=== PATIENT | female | born 1950 | race Caucasian/White ===

== ENCOUNTER 2019-06-20 16:03 | Emergency (ER) | payer MEDICARE ==
[2019-06-20 16:39] VITALS: BP 140/62; PULSE 73
--- NOTE | 2019-06-20 16:51 | EDM.PDOC ---
ED HPI GENERAL MEDICAL PROBLEM - General Chief Complaint: Flank Pain Stated Complaint: LOWER RIGHT BACK PAIN Time Seen by Provider: 06/20/19 16:50 Source of Information: Reports: Patient History Limitations: Reports: No Limitations - History of Present Illness INITIAL COMMENTS - FREE TEXT/NARRATIVE: pt is having rt flank pain she has had this on and off for 2 years. She has mainly back pain. This was at the level of a 10 earlier and is a 5 now. She is not vomiting. She has not noted blood in the urine, Onset: Today, Sudden, Other (pt acute pain in the rt flank . Pain is mainly flank pain. He did not have pain in the rt upper abdoman. ) Duration: Hour(s): Location: Reports: Back, Other (pt has acute pain in the rt back area. ) Right Flank Pain Score (Numeric/FACES): 7 - Related Data Allergies Allergy/AdvReac Type Severity Reaction Status Date / Time No Known Allergies Allergy Verified 06/20/19 17:01 Home Meds: Home Meds Aspirin [Adult Low Dose Aspirin EC] 81 mg PO DAILY 02/22/14 [History] Lisinopril 5 mg PO DAILY 02/22/14 [History] Omeprazole [Prilosec] 20 mg PO BID 02/22/14 [History] Potassium Chloride [Klor-Con] 20 meq PO DAILY 02/22/14 [History] Pravastatin Sodium [Pravastatin (Pravachol)] 40 mg PO BEDTIME 02/22/14 [History] hydroCHLOROthiazide [Hydrochlorothiazide] 25 mg PO DAILY 02/22/14 [History] Levothyroxine 112 mcg PO ACBREAKFAST 06/20/19 [History] traZODone 100 mg PO BEDTIME 06/20/19 [History] Past Medical History HEENT History: Reports: Impaired Vision Cardiovascular History: Reports: Hypertension Gastrointestinal History: Reports: None, Colon Polyp, GERD Genitourinary History: Reports: Pyelonephritis, UTI, Recurrent [employer] History: Reports: , Spontaneous Musculoskeletal History: Reports: Arthritis, Fracture, Other (See Below) Other Musculoskeletal History: right broken leg Endocrine/Metabolic History: Reports: Other (See Below) Other Endocrine/Metabolic History: right thyroid nodule Dermatologic History: Reports: None - Infectious Disease History Infectious Disease History: Reports: Chicken Pox, Measles, Mumps - Past Surgical History Cardiovascular Surgical History: Reports: None GI Surgical History: Reports: Appendectomy, Colonoscopy, Polypectomy Female Surgical History: Reports: Breast Biopsy, Hysterectomy, Other (See Below) Other Female Surgeries/Procedures: bladder sling Endocrine Surgical History: Reports: Thyroid Biopsy Musculoskeletal Surgical History: Reports: None Dermatological Surgical History: Reports: None Social & Family History - Family History Family Medical History: Noncontributory - Caffeine Use Caffeine Use: Reports: Tea ED ROS GENERAL - Review of Systems Review Of Systems: See Below Constitutional: Reports: No Symptoms HEENT: Reports: No Symptoms Respiratory: Reports: No Symptoms Cardiovascular: Reports: No Symptoms Endocrine: Reports: No Symptoms GI/Abdominal: Reports: No Symptoms, Other ( rt flank pain) : Reports: Flank Pain Musculoskeletal: Reports: No Symptoms ED EXAM, GI/ABD - Physical Exam Exam: See Below Text/Narrative:: pt arrived with rt flank pain that started earlier and this was at a 10. She is now sitting at a 5. She has not vomited. Exam Limited By: No Limitations General Appearance: Alert, Anxious, Moderate Distress Ears: Normal TMs Nose: Normal Inspection Throat/Mouth: Normal Inspection Head: Atraumatic Neck: Normal Inspection Respiratory/Chest: No Respiratory Distress Cardiovascular: Regular Rate, Rhythm GI/Abdominal Exam: Soft, Non-Tender, Other (pt is tnder in the back area. ) (Female) Exam: Deferred Rectal (Female) Exam: Deferred Back Exam: Normal Inspection Extremities: Normal Inspection Neurological: Alert, Oriented, Normal Cognition Psychiatric: Anxious Course - Vital Signs Last Recorded V/S: Last Vital Signs Temp 35.4 C 06/20/19 16:59 Pulse 73 06/20/19 16:59 Resp 16 06/20/19 16:59 BP 140/62 06/20/19 16:59 Pulse Ox 97 06/20/19 16:59 - Orders/Labs/Meds Labs: Laboratory Tests 06/20/19 06/20/19 06/20/19 Range/Units 16:50 16:50 16:50 WBC 6.4 (4.5-11.0) K/uL RBC 4.84 (3.30-5.50) M/uL Hgb 13.8 (12.0-15.0) g/dL Hct 42.6 (36.0-48.0) % MCV 88 (80-98) fL MCH 29 (27-31) pg MCHC 32 (32-36) % Plt Count 281 (150-400) K/uL Neut % (Auto) 67 H (36-66) % Lymph % (Auto) 21 L (24-44) % [place] % (Auto) 9 H (2-6) % Eos % (Auto) 2 (2-4) % Baso % (Auto) 1 (0-1) % Sodium 138 L (140-148) mmol/L Potassium 3.8 (3.6-5.2) mmol/L Chloride 101 (100-108) mmol/L Carbon Dioxide 30 (21-32) mmol/L Anion Gap 10.8 (5.0-14.0) mmol/L BUN 14 (7-18) mg/dL Creatinine 0.7 (0.6-1.0) mg/dL Est Cr Clr Drug Dosing 70.18 mL/min Estimated GFR (MDRD) > 60 (>60) Glucose 107 H (74-106) mg/dL Calcium 8.7 (8.5-10.1) mg/dL Total Bilirubin 0.5 (0.2-1.0) mg/dL AST 18 (15-37) U/L ALT 27 (12-78) U/L Alkaline Phosphatase 99 (46-116) U/L C-Reactive Protein 0.60 H (0.0-0.3) mg/dL Total Protein 7.0 (6.4-8.2) g/dL Albumin 3.8 (3.4-5.0) g/dL Globulin 3.2 (2.3-3.5) g/dL Albumin/Globulin Ratio 1.2 (1.2-2.2) Urine Color (YELLOW) Urine Appearance (CLEAR) Urine pH (5.0-8.0) Ur Specific [place] (1.008-1.030) Urine Protein (NEGATIVE) mg/dL Urine Glucose (UA) (NEGATIVE) mg/dL Urine Ketones (NEGATIVE) mg/dL Urine Occult Blood (NEGATIVE) Urine Nitrite (NEGATIVE) Urine Bilirubin (NEGATIVE) Urine Urobilinogen (0.2-1.0) EU/dL Ur Leukocyte Esterase (NEGATIVE) Urine RBC (0-5) Urine WBC (0-5) Ur Epithelial Cells Amorphous Sediment Urine Bacteria Urine Mucus 06/20/19 Range/Units 16:51 WBC (4.5-11.0) K/uL RBC (3.30-5.50) M/uL Hgb (12.0-15.0) g/dL Hct (36.0-48.0) % MCV (80-98) fL MCH (27-31) pg MCHC (32-36) % Plt Count (150-400) K/uL Neut % (Auto) (36-66) % Lymph % (Auto) (24-44) % [place] % (Auto) (2-6) % Eos % (Auto) (2-4) % Baso % (Auto) (0-1) % Sodium (140-148) mmol/L Potassium (3.6-5.2) mmol/L Chloride (100-108) mmol/L Carbon Dioxide (21-32) mmol/L Anion Gap (5.0-14.0) mmol/L BUN (7-18) mg/dL Creatinine (0.6-1.0) mg/dL Est Cr Clr Drug Dosing mL/min Estimated GFR (MDRD) (>60) Glucose (74-106) mg/dL Calcium (8.5-10.1) mg/dL Total Bilirubin (0.2-1.0) mg/dL AST (15-37) U/L ALT (12-78) U/L Alkaline Phosphatase (46-116) U/L C-Reactive Protein (0.0-0.3) mg/dL Total Protein (6.4-8.2) g/dL Albumin (3.4-5.0) g/dL Globulin (2.3-3.5) g/dL Albumin/Globulin Ratio (1.2-2.2) Urine Color Yellow (YELLOW) Urine Appearance Clear (CLEAR) Urine pH 6.5 (5.0-8.0) Ur Specific [place] 1.020 (1.008-1.030) Urine Protein Negative (NEGATIVE) mg/dL Urine Glucose (UA) Negative (NEGATIVE) mg/dL Urine Ketones Negative (NEGATIVE) mg/dL Urine Occult Blood Moderate H (NEGATIVE) Urine Nitrite Negative (NEGATIVE) Urine Bilirubin Negative (NEGATIVE) Urine Urobilinogen 0.2 (0.2-1.0) EU/dL Ur Leukocyte Esterase Trace H (NEGATIVE) Urine RBC 10-20 H (0-5) Urine WBC 5-10 H (0-5) Ur Epithelial Cells Few Amorphous Sediment Not seen Urine Bacteria Few Urine Mucus Not seen - Re-Assessments/Exams Free Text/Narrative Re-Assessment/Exam: 06/20/19 18:59 pt arrived with back pain. her urine showed alot of blood and some wbcs. a cat scan was obtained which showed multiple stones in the rt kidney. One of them is 7 mm. There is thickening of the rt renal pelvis. There are stones in the Gb but she is not tender over the GB, 06/20/19 19:00 06/20/19 19:01 Departure - Departure Time of Disposition: 19:05 Disposition: Home, Self-Care 01 Condition: Fair Clinical Impression: Calculus of right kidney, UTI (urinary tract infection) - Discharge Information Referrals: Anabella Clark DO [Primary Care Provider] - Forms: ED Department Discharge Care Plan Goals: push fluids, torodol 10 mg q6h prn for pain, call in am and get appt with urology--[facility] rtc if pain gets alot worse.
--- NOTE | 2019-06-20 18:12 | CRLCT ---
INDICATION: Right flank pain TECHNIQUE: CT Abdomen and pelvis without i.v. contrast. Coronal and sagittal reformats were obtained. COMPARISON: None FINDINGS: Lower chest: Unremarkable. Liver: Unremarkable. Spleen: Unremarkable. Pancreas: Unremarkable. Gallbladder: Numerous small calcified gallstones are noted. Kidney: There is a 7 mm nonobstructing stone present within the right renal pelvis. There are 2 1 mm stones present in the midzone of the right kidney and a 1 mm stone present in the midzone and lower pole of the left kidney. There is a hypodense lesion in the lower pole left kidney measuring 3.1 cm in diameter, likely an incidental renal cysts. Mild thickening of the right renal pelvis urothelium is seen. Adrenal: Unremarkable. Bowel: There is a gasless density near the ileocecal valve without any apparent obstruction of the terminal ileum. This is most likely due to small bowel contents incompletely mixing with cecal stool. Small sliding type gastric hiatal hernia (type IV) is present. There is a duodenum diverticulum present measuring 1.4 cm. The appendix is not identified. Vascular: Unremarkable. Lymph: Unremarkable. Peritoneum: Unremarkable. No pneumoperitoneum is seen. No significant ascites is noted. Pelvis: The patient is status post prior hysterectomy. Soft tissue: Unremarkable. Bone: Unremarkable for age. IMPRESSIONS: 1. Numerous small calcified gallstones are noted. 2. There is a 7 mm nonobstructing stone present within the right renal pelvis. There are 2 1 mm stones present in the midzone of the right kidney and a 1 mm stone present in the midzone and lower pole of the left kidney. 3. Mild thickening of the right renal pelvis urothelium is seen. Correlation with urinalysis is recommended to exclude infectious pyelitis or pyelonephritis. Dictated by Eduardo Hagen MD @ 06/20/2019 6:10:51 PM Please note that all CT scans at this facility use dose modulation, iterative reconstruction, and/or weight-based dosing when appropriate to reduce radiation dose to as low as reasonably achievable. Dictated by: Eduardo Hagen MD @ 06/20/2019 18:10:55 (Electronically Signed)
[2019-06-20] MEDS ORDERED: Ketorolac 60 MG/2 ML SDV IM ONE (19:04)
== END 2019-06-20 19:19 | disposition home or self-care (01) ==
LOC: JP.ED 16:03
DX: N20.0 Calculus of kidney (principal); N39.0 Urinary tract infection, site not specified; I10 Essential (primary) hypertension; K21.9 Gastro-esophageal reflux disease without esophagitis; Z79.82 Long term (current) use of aspirin; Z79.899 Other long term (current) drug therapy
CPT/HCPCS: 36415; 74176; 80053; 81001; 85025; 86140; 87086; 96372; 99283; 99284-25; J1885

== ENCOUNTER 2019-10-15 06:13 | Day surgery (SDC) | payer MEDICARE ==
[2019-10-15] MEDS ORDERED: fentaNYL 100 MCG/2 ML SDV ONE (07:13)
[2019-10-15] MEDS ORDERED: Midazolam 1 MG/ML 2 ML SDV ONE (07:13)
[2019-10-15] MEDS ORDERED: Propofol 200 MG/20 ML SDV ONE (07:14)
[2019-10-15] MEDS ORDERED: Sodium Chloride 0.9% 1,000 ML IV SCH (07:30)
[2019-10-15 08:57] VITALS: BP 124/82; PULSE 62
--- NOTE | 2019-10-15 10:18 | PROC ---
DATE OF PROCEDURE: 10/15/2019 SURGEON: Lefty Oden MD PREPROCEDURE DIAGNOSIS: Adenomatous colon polyps. POSTPROCEDURE DIAGNOSES: Two polyps removed with biopsy forceps, sigmoid diverticulosis, and internal hemorrhoids. DESCRIPTION OF PROCEDURE: Risks and goals of the procedure were reviewed with the patient. She gave informed consent to proceed. She was brought back to the surgical room and placed in a left lateral decubitus position. Time-out was held prior to the procedure to confirm right patient, right side, and right procedure. When adequate sedation was achieved, digital rectal exam was performed, which was unremarkable. Following this, the flexible colonoscope was placed and advanced through the colon to the cecum. The scope was then slowly withdrawn back out of the cecum, ascending colon. At the hepatic flexure, she was noted to have a 5-mm polyp, removed using biopsy forceps. In the proximal transverse colon, she was found to have another 3 mm polyp, which was removed using biopsy forceps. Scope was then withdrawn through the length of the transverse colon, descending colon, and into the sigmoid colon, where she was noted to have multiple diverticula. Scope was then brought back into the rectum, where it was retroflexed, straightened and removed. She was noted to have internal hemorrhoids. No other mucosal polyps, masses, or lesions were seen. The procedure was otherwise completed without complication. Pathologic review of the biopsy specimens pending at the time of this dictation. Lefty Oden MD /[id number]
== END 2019-10-15 09:06 | disposition home or self-care (01) ==
LOC: JP.SDS 06:13
PROVIDERS: ATTEND Hospitalist
DX: Z12.11 Encounter for screening for malignant neoplasm of colon (principal); D12.3 Benign neoplasm of transverse colon; K57.30 Diverticulosis of large intestine without perforation or abscess without bleeding; K64.8 Other hemorrhoids; K21.9 Gastro-esophageal reflux disease without esophagitis; E78.5 Hyperlipidemia, unspecified; I10 Essential (primary) hypertension; E66.9 Obesity, unspecified; Z86.010 Personal history of colon polyps; Z68.36 Body mass index [BMI] 36.0-36.9, adult
CPT/HCPCS: 45380; J2250; J2704; J3010; J7030; 88305

== ENCOUNTER 2019-11-13 23:07 | Emergency (ER) | payer MEDICARE ==
--- NOTE | 2019-11-13 23:49 | EDM.PDOC ---
ED HPI GENERAL MEDICAL PROBLEM - General Chief Complaint: Abdominal Pain Stated Complaint: BACK HURTS NOT AN ACCIDENT Time Seen by Provider: 11/13/19 23:41 Source of Information: Reports: Patient, Old Records, RN Notes Reviewed History Limitations: Reports: No Limitations - History of Present Illness INITIAL COMMENTS - FREE TEXT/NARRATIVE: 69-year-old female presents emergency department with a complaint of right flank pain she does have a known history of nephrolithiasis she feels this is very similar in nature does have nausea and vomiting as well no fevers lower right back pain Pain Score (Numeric/FACES): 50 - Related Data Allergies Allergy/AdvReac Type Severity Reaction Status Date / Time No Known Allergies Allergy Verified 11/13/19 23:25 Home Meds: Home Meds Aspirin [Adult Low Dose Aspirin EC] 81 mg PO DAILY 02/22/14 [History] Lisinopril 5 mg PO DAILY 02/22/14 [History] Omeprazole [Prilosec] 20 mg PO BID 02/22/14 [History] Potassium Chloride [Klor-Con] 20 meq PO DAILY 02/22/14 [History] Pravastatin Sodium [Pravastatin (Pravachol)] 40 mg PO BEDTIME 02/22/14 [History] hydroCHLOROthiazide [Hydrochlorothiazide] 25 mg PO BID 02/22/14 [History] Levothyroxine 112 mcg PO ACBREAKFAST 06/20/19 [History] traZODone 100 mg PO BEDTIME 06/20/19 [History] Past Medical History HEENT History: Reports: Impaired Vision Cardiovascular History: Reports: High Cholesterol, Hypertension Gastrointestinal History: Reports: Colon Polyp, GERD Genitourinary History: Reports: Pyelonephritis, Renal Calculus, UTI, Recurrent [employer]ER History: Reports: , Spontaneous Musculoskeletal History: Reports: Arthritis, Fracture, Other (See Below) Other Musculoskeletal History: right broken leg Endocrine/Metabolic History: Reports: Hypothyroidism, Obesity/BMI 30+, Other ( See Below) Other Endocrine/Metabolic History: right thyroid nodule Dermatologic History: Reports: None - Infectious Disease History Infectious Disease History: Reports: Chicken Pox, Measles, Mumps - Past Surgical History GI Surgical History: Reports: Appendectomy, Colonoscopy, EGD, Polypectomy Female Surgical History: Reports: Breast Biopsy, Hysterectomy, Kidney stone extraction, Other (See Below) Other Female Surgeries/Procedures: bladder sling. Stone removal Jul 19 2019 Endocrine Surgical History: Reports: Thyroid Biopsy, Thyroidectomy Social & Family History - Family History Family Medical History: Noncontributory - Tobacco Use Smoking Status *Q: Never Smoker Second Hand Smoke Exposure: No - Caffeine Use Caffeine Use: Reports: None Caffeine Use Comment: rare - Recreational Drug Use Recreational Drug Use: No ED ROS GENERAL - Review of Systems Review Of Systems: See Below Constitutional: Reports: No Symptoms HEENT: Reports: No Symptoms Respiratory: Reports: No Symptoms Cardiovascular: Reports: No Symptoms GI/Abdominal: Reports: Abdominal Pain, Nausea, Vomiting : Reports: Flank Pain ED EXAM, RENAL/ - Physical Exam Exam: See Below Exam Limited By: No Limitations General Appearance: Alert, WD/WN, No Apparent Distress Respiratory/Chest: No Respiratory Distress GI/Abdominal: Soft, Tender (Tender along the right flank) Course - Vital Signs Last Recorded V/S: Last Vital Signs Temp 96.5 F L 11/13/19 23:26 Pulse 62 11/13/19 23:26 Resp 16 11/13/19 23:26 BP 174/71 H 11/13/19 23:26 Pulse Ox 97 11/13/19 23:26 - Orders/Labs/Meds Orders: Active Orders 24 hr Category Date Time Status CULTURE URINE [RM] Urgent Lab 11/14/19 01:08 Received Labs: Laboratory Tests 11/13/19 11/13/19 11/13/19 Range/Units 23:28 23:55 23:55 WBC 8.0 (4.5-11.0) K/uL RBC 4.94 (3.30-5.50) M/uL Hgb 14.1 (12.0-15.0) g/dL Hct 42.3 (36.0-48.0) % MCV 86 (80-98) fL MCH 29 (27-31) pg MCHC 33 (32-36) % Plt Count 307 (150-400) K/uL Neut % (Auto) 86 H (36-66) % Lymph % (Auto) 9 L (24-44) % [place] % (Auto) 4 (2-6) % Eos % (Auto) 0 L (2-4) % Baso % (Auto) 0 (0-1) % Sodium 137 L (140-148) mmol/L Potassium 3.4 L (3.6-5.2) mmol/L Chloride 99 L (100-108) mmol/L Carbon Dioxide 30 (21-32) mmol/L Anion Gap 11.4 (5.0-14.0) mmol/L BUN 15 (7-18) mg/dL Creatinine 0.7 (0.6-1.0) mg/dL Est Cr Clr Drug Dosing 69.21 mL/min Estimated GFR (MDRD) > 60 (>60) Glucose 160 H (74-106) mg/dL Calcium 8.7 (8.5-10.1) mg/dL Total Bilirubin (0.2-1.0) mg/dL Direct Bilirubin (0.0-0.2) mg/dL Indirect Bilirubin AST (15-37) U/L ALT (12-78) U/L Alkaline Phosphatase (46-116) U/L Total Protein (6.4-8.2) g/dL Albumin (3.4-5.0) g/dL Globulin (2.3-3.5) g/dL Albumin/Globulin Ratio (1.2-2.2) Urine Color Yellow (YELLOW) Urine Appearance Slightly cloudy A (CLEAR) Urine pH 7.0 (5.0-8.0) Ur Specific [place] 1.025 (1.008-1.030) Urine Protein Negative (NEGATIVE) mg/dL Urine Glucose (UA) Negative (NEGATIVE) mg/dL Urine Ketones Negative (NEGATIVE) mg/dL Urine Occult Blood Negative (NEGATIVE) Urine Nitrite Negative (NEGATIVE) Urine Bilirubin Negative (NEGATIVE) Urine Urobilinogen 1.0 (0.2-1.0) EU/dL Ur Leukocyte Esterase Small H (NEGATIVE) Urine RBC 0-5 (0-5) Urine WBC 5-10 H (0-5) Ur Epithelial Cells Few Amorphous Sediment Moderate Urine Bacteria Moderate Urine Mucus Moderate 03/04/20 Range/Units 01:03 WBC (4.5-11.0) K/uL RBC (3.30-5.50) M/uL Hgb (12.0-15.0) g/dL Hct (36.0-48.0) % MCV (80-98) fL MCH (27-31) pg MCHC (32-36) % Plt Count (150-400) K/uL Neut % (Auto) (36-66) % Lymph % (Auto) (24-44) % [place] % (Auto) (2-6) % Eos % (Auto) (2-4) % Baso % (Auto) (0-1) % Sodium (140-148) mmol/L Potassium (3.6-5.2) mmol/L Chloride (100-108) mmol/L Carbon Dioxide (21-32) mmol/L Anion Gap (5.0-14.0) mmol/L BUN (7-18) mg/dL Creatinine (0.6-1.0) mg/dL Est Cr Clr Drug Dosing mL/min Estimated GFR (MDRD) (>60) Glucose (74-106) mg/dL Calcium (8.5-10.1) mg/dL Total Bilirubin 0.5 (0.2-1.0) mg/dL Direct Bilirubin 0.16 (0.0-0.2) mg/dL Indirect Bilirubin 0.34 AST 16 (15-37) U/L ALT 27 (12-78) U/L Alkaline Phosphatase 85 (46-116) U/L Total Protein 6.8 (6.4-8.2) g/dL Albumin 3.8 (3.4-5.0) g/dL Globulin 3.0 (2.3-3.5) g/dL Albumin/Globulin Ratio 1.3 (1.2-2.2) Urine Color (YELLOW) Urine Appearance (CLEAR) Urine pH (5.0-8.0) Ur Specific [place] (1.008-1.030) Urine Protein (NEGATIVE) mg/dL Urine Glucose (UA) (NEGATIVE) mg/dL Urine Ketones (NEGATIVE) mg/dL Urine Occult Blood (NEGATIVE) Urine Nitrite (NEGATIVE) Urine Bilirubin (NEGATIVE) Urine Urobilinogen (0.2-1.0) EU/dL Ur Leukocyte Esterase (NEGATIVE) Urine RBC (0-5) Urine WBC (0-5) Ur Epithelial Cells Amorphous Sediment Urine Bacteria Urine Mucus Meds: Medications Discontinued Medications Generic Name Dose Route Start Last Admin Trade Name Freq PRN Reason Stop Dose Admin Fentanyl 50 mcg 11/14/19 01:08 11/14/19 01:16 Sublimaze IM 11/14/19 01:09 50 mcg ONETIME ONE Administration Ketorolac Tromethamine 30 mg 11/13/19 23:45 11/14/19 00:08 Toradol IM 11/13/19 23:46 30 mg ONETIME ONE Administration Ondansetron HCl 4 mg 11/13/19 23:45 11/14/19 00:08 Zofran Odt PO 11/13/19 23:46 4 mg ONETIME ONE Administration Departure - Departure Time of Disposition: 02:49 Disposition: Home, Self-Care 01 Condition: Fair Clinical Impression: Cholelithiasis Qualifiers: Cholelithiasis location: gallbladder Cholecystitis presence: without cholecystitis Biliary obstruction: with biliary obstruction Qualified Code(s): K80.21 - Calculus of gallbladder without cholecystitis with obstruction - Discharge Information Instructions: Cholelithiasis Referrals: Anabella Clark DO [Primary Care Provider] - Forms: ED Department Discharge Additional Instructions: Please call to the [facility] in the morning for an appointment time with Dr. Schulte, use your hydrocodone as needed for pain control call or return to the emergency department worsening of symptoms Sepsis Event Note - Evaluation Sepsis Screening Result: No Definite Risk - Focused Exam Vital Signs: Vital Signs Temp Pulse Resp BP Pulse Ox 11/13/19 23:26 96.5 F L 62 16 174/71 H 97 Date Exam was Performed: 11/14/19 Time Exam was Performed: 02:47 - My Orders Last 24 Hours: My Active Orders 11/14/19 01:08 CULTURE URINE [RM] Urgent - Assessment/Plan Last 24 Hours: My Active Orders 11/14/19 01:08 CULTURE URINE [RM] Urgent Plan: Assessment Acuity = acute Site and laterality = cholelithiasis Etiology = unknown Manifestations = right upper quadrant abdominal pain intermittent Location of injury = Home Lab values = CBC unremarkable potassium low at 3.4 consistent with hypokalemia urinalysis reveals 5-10 WBCs consistent with pyuria moderate amount of bacteria cultures pending CT scan does demonstrate multiple gallstones otherwise no acute process in the abdomen ultrasound does confirm this with no evidence of cholecystitis Plan Consultation was set up with Dr. Schulte in the clinic, she will call to the clinic in the morning for an appointment time prescription written for hydrocodone 5/325 1 tab p.o. 3 times daily PRN total #10 This note was dictated using [employer] voice recognition software please call with any questions on syntax or grammar.
[2019-11-14] MEDS: Ondansetron 4 MG Tab.DIS PO ONE (00:08)
[2019-11-14] MEDS: Ketorolac 30 MG/ML SDV IM ONE (00:08)
--- NOTE | 2019-11-14 00:53 | CRLCT ---
INDICATION: Right flank pain TECHNIQUE: Axial images were obtained from the diaphragm to the pubic symphysis. Reformats were obtained in the coronal and sagittal plane. IV Contrast: None Oral Contrast: None COMPARISON: Abdomen and pelvis CT 06/20/2019 FINDINGS: Lower chest: Minimal bibasilar discoid atelectasis. Small hiatal hernia. Liver: Unremarkable. Normal in size and attenuation. No masses. Gallbladder and bile ducts: Moderate gallbladder distention with cholelithiasis. Stones noted at the gallbladder neck (2, 50). Spleen: Unremarkable. Normal in size without mass. Pancreas: Unremarkable. No mass or inflammation. Adrenal glands: Unremarkable. No nodules. Kidneys: Right renal cyst measuring 3.5 centimeters. Nonobstructing nephrolithiasis. No ureteral stone or hydronephrosis. Vasculature: Unremarkable. GI tract: Small hiatal hernia. No dilated loops of large or small intestine. Colonic diverticulosis. Pelvis: Bladder unremarkable. Status posthysterectomy. Bones: Mild degenerative disc disease lumbar spine. IMPRESSION: 1. Nephrolithiasis without ureteral stone or hydronephrosis. 2. Cholelithiasis with gallbladder distention and stones at the gallbladder neck. Right upper quadrant ultrasound may have improved characterization. 3. Colonic diverticulosis. 4. Small hiatal hernia. Please note that all CT scans at this facility use dose modulation, iterative reconstruction, and/or weight-based dosing when appropriate to reduce radiation dose to as low as reasonably achievable. Dictated by Carlos Gallardo MD @ Nov 14 2019 12:41AM Signed by Dr. Carlos Gallardo @ Nov 14 2019 12:52AM
[2019-11-14] MEDS: fentaNYL 100 MCG/2 ML SDV IM ONE (01:16)
--- NOTE | 2019-11-14 02:34 | CRLUS ---
INDICATION: Right upper quadrant abdominal pain TECHNIQUE: Ultrasound abdomen limited. Sonographic images of the right upper quadrant were obtained using bui-scale and color Doppler images. COMPARISON: CT today, 06/20/2019 FINDINGS: Liver: The liver parenchyma is normal in echotexture. Gallbladder: Multiple tiny echogenic gallstones and small amount of sludge are seen near the neck of the gallbladder. The gallbladder wall is normal in appearance. No pericholecystic fluid is present. A sonographic Jerome sign was reported. Common bile duct: 7 mm. No intrahepatic biliary ductal dilatation seen. Pancreas: The visualized portions of the pancreatic head and body are normal in appearance. Right Kidney: 10 cm. No hydronephrosis or ureterectasis is seen. Vascular: The visualized aorta and IVC are unremarkable. The visualized portal vein is patent with normal anterograde flow. IMPRESSION: 1. Multiple gallstones are present with no sonographic evidence of cholecystitis at this time. Close clinical follow-up is recommended given the presence of sonographic Jerome sign. Dictated by Eduardo Hagen MD @ 11/14/2019 2:33:19 AM Dictated by: Eduardo Hagen MD @ 11/14/2019 02:33:25 (Electronically Signed)
[2019-11-14 03:14] VITALS: BP 168/68; PULSE 64
== END 2019-11-14 03:14 | disposition home or self-care (01) ==
LOC: JP.ED 23:07
DX: K80.21 Calculus of gallbladder without cholecystitis with obstruction (principal); I10 Essential (primary) hypertension; Z79.82 Long term (current) use of aspirin; Z79.899 Other long term (current) drug therapy; Z90.49 Acquired absence of other specified parts of digestive tract
CPT/HCPCS: 36415; 74176; 76705; 80048; 80076; 81001; 85025; 87086; 96372; 99283; 99284; A9270; J1885; J3010

== ENCOUNTER 2019-11-17 05:51 | Inpatient (IN) | payer MEDICARE ==
[2019-11-17] MEDS ORDERED: fentaNYL 250 MCG/5 ML SDV ONE (06:27)
[2019-11-17] MEDS ORDERED: Neostigmine Methylsulfate 1 MG/ML 5 ML Syringe ONE (06:29)
[2019-11-17] MEDS ORDERED: Ondansetron 4 MG/2 ML SDV ONE (06:29)
[2019-11-17] MEDS ORDERED: Dexamethasone 4 MG/ML SDV ONE (06:29)
[2019-11-17] MEDS ORDERED: Rocuronium 50 MG/5 ML Vial ONE (06:29)
[2019-11-17] MEDS ORDERED: Propofol 200 MG/20 ML SDV ONE (06:29)
[2019-11-17] MEDS ORDERED: Glycopyrrolate 0.2 MG/ML 5 ML MDV ONE (06:29)
[2019-11-17] MEDS ORDERED: Lidocaine 2% 5 ML SDV ONE (06:30)
[2019-11-17] MEDS ORDERED: Bupivacaine 0.5%/EPINEPHrine 1:200,000 50 ML MDV ONE (06:31)
[2019-11-17] MEDS ORDERED: cefOXitin 2 GM in Sodium Chloride 0.9% 50 ML IV ONE (07:00)
[2019-11-17] MEDS ORDERED: Acetaminophen 500 MG Tab PO ONE (07:00)
[2019-11-17] MEDS: Dextrose 5%-Lactated Ringers 1,000 ML IV SCH ×3 (07:35→22:02)
[2019-11-17] MEDS ORDERED: ePHEDrine 50 MG/ML SDV ONE (08:10)
[2019-11-17] MEDS ORDERED: Ketamine 50 MG in Sodium Chloride 0.9% 49.5 ML IV SCH (08:15)
[2019-11-17] MEDS ORDERED: Ketamine 500 MG/5 ML MDV IV SCH (08:15)
[2019-11-17] MEDS ORDERED: Meropenem 500 MG SDV ONE (08:30)
[2019-11-17] MEDS ORDERED: Sodium Chloride 0.9% 10 ML ONE (08:31)
[2019-11-17] MEDS ORDERED: fentaNYL 100 MCG/2 ML SDV ONE ×3 (08:37→09:12)
[2019-11-17] MEDS: Ondansetron 4 MG/2 ML SDV IVPUSH PRN ×2 (09:50→10:26)
[2019-11-17] MEDS ORDERED: hydrOXYzine HCL 100 MG/2 ML SDV IM ONE (10:00)
[2019-11-17] MEDS ORDERED: fentaNYL 100 MCG/2 ML SDV IVPUSH ONE ×2 (10:00→10:09)
[2019-11-17] MEDS ORDERED: Ondansetron 4 MG/2 ML SDV IVPUSH ONE (10:23)
[2019-11-17] MEDS ORDERED: Meperidine PF 100 MG/ML Syringe IM ONE (10:31)
[2019-11-17] MEDS ORDERED: Ondansetron 4 MG/2 ML SDV IVPUSH PRN (11:11)
[2019-11-17] MEDS ORDERED: HYDROmorphone 0.5 MG/0.5 ML Syringe IVPUSH PRN (11:11)
[2019-11-17] MEDS: HYDROmorphone 1 MG/ML Syringe IV PRN ×4 (11:31→20:11)
[2019-11-17] MEDS ORDERED: Pantoprazole 40 MG Vial IVPUSH SCH (12:00)
[2019-11-17] MEDS: Meropenem 500 MG in Sodium Chloride 0.9% 50 ML IV SCH ×2 (13:43→20:01)
[2019-11-17] MEDS: Hydrochlorothiazide 25 MG Tab PO SCH (13:44)
[2019-11-17] MEDS: traZODone 50 MG Tab PO SCH (21:27)
[2019-11-18] MEDS: Meropenem 500 MG in Sodium Chloride 0.9% 50 ML IV SCH ×4 (01:54→20:15)
[2019-11-18] MEDS: Acetaminophen/HYDROcodone 325-5 MG Tab PO PRN ×3 (05:16→19:36)
[2019-11-18] MEDS: Levothyroxine 112 MCG Tab PO SCH (06:50)
[2019-11-18] MEDS: Hydrochlorothiazide 25 MG Tab PO SCH ×2 (07:51→13:56)
[2019-11-18] MEDS: Lisinopril 5 MG Tab PO SCH (08:00)
[2019-11-18] MEDS: Potassium Chloride 20 MEQ Tab.ER PO SCH (08:00)
[2019-11-18] MEDS: HYDROmorphone 1 MG/ML Syringe IV PRN (11:41)
[2019-11-18] MEDS: Pantoprazole 40 MG Tab.CR PO SCH (11:48)
[2019-11-18] MEDS ORDERED: Calcium Carbonate 500 MG Tab.Chew PO PRN (17:40)
[2019-11-18] MEDS: Amoxicillin/Clavulanate K 875-125 MG Tab PO SCH (20:51)
[2019-11-18] MEDS: traZODone 50 MG Tab PO SCH (23:34)
[2019-11-19 02:58] VITALS: PULSE 65
[2019-11-19] MEDS: Acetaminophen/HYDROcodone 325-5 MG Tab PO PRN ×2 (03:02→08:00)
[2019-11-19] MEDS: Levothyroxine 112 MCG Tab PO SCH (07:17)
[2019-11-19 07:57] VITALS: BP 110/60
[2019-11-19] MEDS: Hydrochlorothiazide 25 MG Tab PO SCH (08:01)
[2019-11-19] MEDS: Pantoprazole 40 MG Tab.CR PO SCH (08:01)
[2019-11-19] MEDS: Potassium Chloride 20 MEQ Tab.ER PO SCH (08:37)
[2019-11-19] MEDS: Amoxicillin/Clavulanate K 875-125 MG Tab PO SCH (08:38)
[2019-11-19] MEDS: Lisinopril 5 MG Tab PO SCH (09:11)
--- NOTE | 2019-11-19 09:17 | DISCH ---
ADMISSION DIAGNOSES: Biliary dyskinesia, hypercholesterolemia, hypertension, gastroesophageal reflux disease, hypothyroidism. DISCHARGE DIAGNOSES: 1. Diagnostic laparoscopy with cholecystectomy. 2. Drainage of pericholecystic fluid. 3. Repair area of deserosalization of the duodenum for acute cholecystitis and cholelithiasis, pericholecystic abscess, inflammatory adherence to gallbladder neck and duodenum, and deserialization of portion of the duodenum. Date of surgery: 11/17/2019. 4. Gallbladder fluid. 5. Klebsiella pneumoniae. HISTORY: Helen Nguyen is a 69-year-old female with right upper quadrant abdominal pain. After preoperative evaluation and discussion of possible risks and possible complications, she wished to proceed with surgical procedure. HOSPITAL COURSE: Helen had her surgery on 11/17/2019. She had no operative complications. On postoperative day #1, the packing was removed from the 2 open trocar sites and 4x4s were placed over those open areas. Pain was controlled. Oral intake adequate. Vital signs remained stable. Activity good. She was able to be discharged to home on postoperative day #2, 11/19/2019. PHYSICAL EXAMINATION: GENERAL: Helen Nguyen is a pleasant 69-year-old female. VITAL SIGNS: Height is 5 feet 5 inches, weight is 219 pounds, BMI is 36.5. TPR on 11/19/2019 at 02:57, 96.3, 65, 16, blood pressure 124/59. HEENT: Negative. NECK: Supple. HEART: Regular rate and rhythm. LUNGS: Clear. ABDOMEN: Dressings dry and intact. Abdominal binder is on. EXTREMITIES: Without peripheral edema. DISPOSITION: Discharged to home. CONDITION: Stable and improving. FOLLOWUP: Appointment with David Schulte on 11/28/2019 at 11 a.m. HOME MEDICATIONS: 1. [place] 5/325 mg 1 q.6 hours p.r.n. pain #28. 2. Augmentin 875/125 mg 1 tablet b.i.d. for 5 days. 3. Aspirin 81 mg oral daily. 4. Levothyroxine 112 mcg oral before breakfast. 5. Lisinopril 5 mg oral daily. 6. Omeprazole 20 mg oral twice daily. 7. Potassium chloride 20 mEq oral daily. 8. Pravachol 40 mg oral at bedtime. 9. Hydrochlorothiazide 25 mg oral twice daily. 10.Trazodone 100 mg at bedtime. DIET: Usual diet as tolerated. Drink 8 to 10 glasses of water a day. ACTIVITY: No lifting greater than 10 pounds for 2 weeks. OTHER ACTIVITY: Walk 6 times inside your home a day. Driving: Do not drive for 1 week and while on pain medication. Shower/bathing: May shower. Keep incision clean and dry. DISCHARGE INSTRUCTIONS: Change 4x4 gauze over open trocar sites twice daily and p.r.n. Wear abdominal binder for 2 weeks and then as tolerated. Notify provider if any fever, increased pain, nausea, or vomiting. Use incentive spirometer 10 times every hour while awake.
--- NOTE | 2019-11-19 15:05 | PN ---
DATE OF SERVICE: 11/18/2019 The patient has been afebrile with stable vital signs. Currently, she is doing well. We will keep her an extra day for IV antibiotics given the extent of the infectious process intra-abdominally identified yesterday. Gram stain showed some gram-positive cocci, which likely will be Enterococcus or some anaerobic strep, which would be covered by the present antibiotics. We removed the packing from the 2 packed trocar sites and dressed with Barrier and 4x4s. Labs were otherwise done this morning. She will likely be ready for discharge home tomorrow. David Schulte MD /[id number]
--- NOTE | 2019-11-26 12:11 | OR ---
DATE OF PROCEDURE: 11/17/2019 SURGEON: David Schulte MD PREOPERATIVE DIAGNOSIS: Acute cholecystitis. POSTOPERATIVE DIAGNOSES: 1. Acute cholecystitis and cholelithiasis. 2. Pericholecystic abscess. 3. Inflammatory adherence to gallbladder neck and duodenum with deserosalization of the portion of duodenum. OPERATIVE PROCEDURE: Diagnostic laparoscopy with: 1. Cholecystectomy (28031). 2. Drainage of pericholecystic abscess (58548). 3. Repair of deserosalization of duodenum (50923). ANESTHESIA: General. PLUMBING INSTRUCTOR: Cheyanne Francis PA-C INDICATIONS FOR PROCEDURE: A 69-year-old female admitted overnight with a picture of acute cholecystitis. Plan is to proceed with a laparoscopic or if necessary open cholecystectomy. Potential risks including bleeding, infection, injury to underlying viscera, problems with stones migrating into common bile duct requiring additional procedures for correction were all reviewed, and the patient wishes to proceed. DETAILS OF PROCEDURE: The patient was taken to the operating room and placed in a supine position. After general endotracheal anesthesia was induced, a transverse infraumbilical incision was made and carried down through the skin, subcutaneous tissue, and the peritoneal cavity entered under direct vision with an Optiview trocar, inflated to 15 mmHg pressure with CO2. Following this, a 12 mm epigastric trocar was placed and a single 5 mm right abdominal trocar was then placed. The upper abdomen showed extremely inflamed gallbladder which was tensely distended. We initially had to open the gallbladder in order to grasp it and evacuate somewhat purulent contents. As one elevated the gallbladder, there was also an area of purulence behind that. Cultures of that were obtained. Initial Gram stain did show gram-positive cocci confirming this was an infected type of fluid collection, i.e. an abscess. As dissection began around the area of the gallbladder neck, it was noted the gallbladder neck and cystic duct triangle areas were densely adherent to the duodenum at that level. As one dissected this off, there was an area of deserosalization of the duodenum. This was then repaired with some 3-0 Vicryl seromuscular stitch and then subsequently covered with fibrin sealant and the omental patch over that with omentum being placed over the fibrin sealant to help fix it in position. Further dissection eventually came down to a well-defined cystic artery and cystic duct. Both structures were divided with the [place] as they were quite thickened and friable and unlikely to satisfactorily hold clips. With regard to the cystic duct, there was a clear delineation of the junction with the common bile duct as that area had been dissected off at that point. Gallbladder was then dissected off gallbladder bed with Harmonic scalpel and delivered through the epigastric trocar site by means of a specimen delivery bag. Area of the dissection was then inspected. No bleeding or bile leaks were seen. A Jose Daniel-Chavez drain was taken out through the right lateral trocar site and positioned into the area of the gallbladder bed and the abscess. The trocars were then sequentially removed and the fascia at these trocar sites closed with 0 Vicryl stitch. Both the periumbilical and epigastric sites were packed open as these were obviously contaminated and an iodoform gauze was placed into those incisions at the subcutaneous level. The patient was taken to the recovery room in satisfactory condition. Physician automotive parts counter assistant, Cheyanne Francis, played an essential role in assisting in this case helping to position the patient, retract structures as needed, as well as suturing and cutting sutures when indicated. Her presence improved patient safety and decreased the operative time. David Schulte MD /[id number]
== END 2019-11-19 11:00 | disposition home or self-care (01) | DRG 419 ==
LOC: JP.SDSSCHI 05:51 → JP.SDS 05:51 → EDSTATUS 07:30 → JP.MS 09:15
PROVIDERS: ADMIT Surgery; ATTEND Surgery
PROC: 0FT44ZZ Resection of Gallbladder, Percutaneous Endoscopic Approach (ICD-10-PCS; principal; 2019-11-17)
PROC: 0DQ94ZZ Repair Duodenum, Percutaneous Endoscopic Approach (ICD-10-PCS; 2019-11-17)
PROC: 0W9G4ZZ Drainage of Peritoneal Cavity, Percutaneous Endoscopic Approach (ICD-10-PCS; 2019-11-17)
DX: K80.00 Calculus of gallbladder with acute cholecystitis without obstruction (principal); E03.9 Hypothyroidism, unspecified; H54.7 Unspecified visual loss; E78.00 Pure hypercholesterolemia, unspecified; B96.1 Klebsiella pneumoniae [K. pneumoniae] as the cause of diseases classified elsewhere; I10 Essential (primary) hypertension; K21.9 Gastro-esophageal reflux disease without esophagitis; M19.90 Unspecified osteoarthritis, unspecified site; E66.9 Obesity, unspecified; Z90.49 Acquired absence of other specified parts of digestive tract; Z90.710 Acquired absence of both cervix and uterus; Z79.899 Other long term (current) drug therapy; Z79.890 Hormone replacement therapy; Z90.89 Acquired absence of other organs; Z79.82 Long term (current) use of aspirin; Z68.36 Body mass index [BMI] 36.0-36.9, adult
CPT/HCPCS: 36415; 82247; 84075; 85025; 87070; 87075; 87077; 87186; 87205; 88304; A9270-GY; C9113; J0171; J0694; J1100; J1170; J2001; J2175; J2185; J2405; J2704; J2710; J2795; J3010; J3410; J3490; J7050; J7121

== ENCOUNTER 2021-01-20 19:52 | Emergency (ER) | payer MEDICARE ==
[2021-01-20 20:03] VITALS: BP 139/89; PULSE 119
--- NOTE | 2021-01-20 20:57 | EDM.PDOC ---
ED HPI GENERAL MEDICAL PROBLEM - General Chief Complaint: ENT Problem Stated Complaint: SORE THROAT Time Seen by Provider: 01/20/21 20:28 Source of Information: Reports: Patient History Limitations: Reports: No Limitations - History of Present Illness INITIAL COMMENTS - FREE TEXT/NARRATIVE: Patient states she started having sore throat today without any sinus drainage; she thinks its related to her yearly allergy issue with popular tree obrien. she states she took some allergy medication this afternoon but came to the ER tonight due to throat pain/discomfort--she states it feels like swallowing razor blades. denies any other associated symptoms PMH--HTN, HLP, GERD Meds--lisinopril, HCTZ, potassium, omeprazole, asa, "statin" NKDA Tob--denies EtOH--denies Drugs--denies --denies having received COVID immunization, states she doesn't want it because of what people say on the internet (ask patient if there were any questions I could answer for her/denied, recommended she speak further with her family doctor) Onset: Today throat Pain Score (Numeric/FACES): 8 - Related Data Allergies Allergy/AdvReac Type Severity Reaction Status Date / Time No Known Allergies Allergy Verified 01/20/21 20:53 Home Meds: Home Meds Lisinopril 5 mg PO DAILY 02/22/14 [History] Omeprazole [Prilosec] 20 mg PO BID 02/22/14 [History] Potassium Chloride [Klor-Con] 20 meq PO DAILY 02/22/14 [History] Pravastatin Sodium [Pravastatin (Pravachol)] 40 mg PO BEDTIME 02/22/14 [History] hydroCHLOROthiazide [Hydrochlorothiazide] 25 mg PO BID 02/22/14 [History] Levothyroxine 112 mcg PO ACBREAKFAST 06/20/19 [History] traZODone 100 mg PO BEDTIME 06/20/19 [History] Aspirin [Low Dose Aspirin EC] 81 mg PO DAILY 11/14/19 [History] Acetaminophen/HYDROcodone [[place] 325-5 MG] 1 tab PO Q6H PRN #28 tablet 11/19/19 [Rx] Amoxicillin/Clavulanate K [Augmentin 875-125 MG] 1 tab PO Q12H #10 tablet 11/19/19 [Rx] Past Medical History HEENT History: Reports: Impaired Vision Cardiovascular History: Reports: High Cholesterol, Hypertension Gastrointestinal History: Reports: Colon Polyp, GERD Genitourinary History: Reports: Pyelonephritis, Renal Calculus, UTI, Recurrent RN RADIATION ONCOLOGY History: Reports: , Spontaneous Musculoskeletal History: Reports: Arthritis, Fracture, Other (See Below) Other Musculoskeletal History: right broken leg Endocrine/Metabolic History: Reports: Hypothyroidism, Obesity/BMI 30+, Other (See Below) Other Endocrine/Metabolic History: right thyroid nodule Dermatologic History: Reports: None - Infectious Disease History Infectious Disease History: Reports: Chicken Pox, Measles, Mumps - Past Surgical History HEENT Surgical History: Reports: None Cardiovascular Surgical History: Reports: None GI Surgical History: Reports: Appendectomy, Cholecystectomy, Colonoscopy, EGD, Polypectomy Female Surgical History: Reports: Breast Biopsy, Hysterectomy, Kidney stone extraction, Other (See Below) Other Female Surgeries/Procedures: bladder sling. Stone removal Jul 19 2019 Endocrine Surgical History: Reports: Thyroid Biopsy, Thyroidectomy Musculoskeletal Surgical History: Reports: None Dermatological Surgical History: Reports: None Social & Family History - Family History Family Medical History: No Pertinent Family History - Tobacco Use Tobacco Use Status *Q: Never Tobacco User Second Hand Smoke Exposure: No - Caffeine Use Caffeine Use: Reports: None Caffeine Use Comment: rare - Recreational Drug Use Recreational Drug Use: No ED ROS ENT - Review of Systems Review Of Systems: See Below Constitutional: Reports: No Symptoms HEENT: Reports: Throat Pain. Denies: Rhinitis, Sinus Problem Respiratory: Reports: No Symptoms Cardiovascular: Reports: No Symptoms Endocrine: Reports: No Symptoms GI/Abdominal: Reports: No Symptoms : Reports: No Symptoms Musculoskeletal: Reports: No Symptoms Skin: Reports: No Symptoms Neurological: Reports: No Symptoms Psychiatric: Reports: No Symptoms Hematologic/Lymphatic: Reports: No Symptoms Immunologic: Reports: No Symptoms ED EXAM, ENT - Physical Exam Exam: See Below Exam Limited By: No Limitations General Appearance: Alert, WD/WN, No Apparent Distress Eye Exam: Bilateral Eye: EOMI, Normal Inspection, PERRL Ears: Normal External Exam, Normal Canal, Hearing Grossly Normal, Normal TMs Nose: Normal Inspection Mouth/Throat: Normal Inspection, Normal Gums, Normal Lips, Normal Oropharynx, Normal Teeth. No: Tonsillar Erythema, Tonsillar Exudates, Tonsillar Swelling Head: Atraumatic, Normocephalic Neck: Normal Inspection, Supple, Non-Tender, Full Range of Motion Respiratory/Chest: No Respiratory Distress, Lungs Clear, Normal Breath Sounds, No Accessory Muscle Use Cardiovascular: Normal Peripheral Pulses, Regular Rate, Rhythm, No Edema, No Murmur GI/Abdominal: Normal Bowel Sounds, Soft, Non-Tender (Female) Exam: Deferred Rectal (Female) Exam: Deferred Back: Normal Inspection Extremities: Normal Inspection, Normal Range of Motion, No Pedal Edema, Normal Capillary Refill Neurological: Alert, Oriented, Normal Cognition, Confused Psychiatric: Normal Affect, Normal Mood Skin: Warm, Dry, Intact, Normal Color Lymphatic: No Adenopathy Course - Vital Signs Last Recorded V/S: Last Vital Signs Temp 97.7 F 01/20/21 20:02 Pulse 119 H 01/20/21 20:02 Resp 16 01/20/21 20:02 BP 139/89 01/20/21 20:02 Pulse Ox 94 L 01/20/21 20:02 - Orders/Labs/Meds Orders: Active Orders 24 hr Category Date Time Status STREP SCRN A RAPID W CULT CONF [] Routine Lab 01/20/21 20:30 Received Labs: Negative [place] Strep screen, culture is pending Departure - Departure Time of Disposition: 21:23 Disposition: Home, Self-Care 01 Condition: Good Clinical Impression: Sore throat, Seasonal allergic reaction - Discharge Information *PRESCRIPTION DRUG MONITORING PROGRAM REVIEWED*: Not Applicable *COPY OF PRESCRIPTION DRUG MONITORING REPORT IN PATIENT MILADY: Not Applicable Instructions: Allergic Rhinitis, Adult, [id number], Pharyngitis, [id number] Referrals: Anabella Clark DO [Primary Care Provider] - Additional Instructions: You may use salt water gargles for throat pain as well as over the counter thr oat losenges/spray Ensure you are drinking plenty of water/fluids to stay well hydrated You may consider use of air purifier in your room at night when sleeping--they usually work best with windows closed/door closed and can be found on-line or at local department store such as [employer] Sepsis Event Note (ED) - Evaluation Sepsis Screening Result: No Definite Risk - Focused Exam Vital Signs: Vital Signs Temp Pulse Resp BP Pulse Ox 01/20/21 20:02 97.7 F 119 H 16 139/89 94 L - My Orders Last 24 Hours: My Active Orders 01/20/21 20:30 STREP SCRN A RAPID W CULT CONF [RM] Routine - Assessment/Plan Last 24 Hours: My Active Orders 01/20/21 20:30 STREP SCRN A RAPID W CULT CONF [RM] Routine
== END 2021-01-20 21:31 | disposition home or self-care (01) ==
LOC: JP.ED 19:52
DX: J02.9 Acute pharyngitis, unspecified (principal); J30.2 Other seasonal allergic rhinitis; I10 Essential (primary) hypertension; E78.5 Hyperlipidemia, unspecified; K21.9 Gastro-esophageal reflux disease without esophagitis; E03.9 Hypothyroidism, unspecified; E66.9 Obesity, unspecified; M19.90 Unspecified osteoarthritis, unspecified site; Z79.82 Long term (current) use of aspirin; Z79.899 Other long term (current) drug therapy; Z68.36 Body mass index [BMI] 36.0-36.9, adult
CPT/HCPCS: 87081; 87880-QW; 99283

== ENCOUNTER 2021-10-17 14:29 | Emergency (ER) | payer MEDICARE ==
[2021-10-17 15:05] VITALS: BP 127/60; PULSE 77
[2021-10-17] MEDS ORDERED: fentaNYL 100 MCG/2 ML SDV IM ONE (15:15)
[2021-10-17] MEDS ORDERED: Ondansetron 4 MG Tab.DIS PO ONE (15:23)
[2021-10-17] MEDS ORDERED: Sodium Chloride 0.9% 10 ML Syringe FLUSH PRN (15:56)
[2021-10-17] MEDS ORDERED: fentaNYL 100 MCG/2 ML SDV IVPUSH ONE (16:13)
[2021-10-17] MEDS ORDERED: Propofol 200 MG/20 ML SDV ONE (16:47)
== END 2021-10-17 17:21 | disposition home or self-care (01) ==
LOC: JP.ED 14:29
DX: S43.015A Anterior dislocation of left humerus, initial encounter (principal); E78.00 Pure hypercholesterolemia, unspecified; I10 Essential (primary) hypertension; K21.9 Gastro-esophageal reflux disease without esophagitis; M19.90 Unspecified osteoarthritis, unspecified site; E03.9 Hypothyroidism, unspecified; E66.9 Obesity, unspecified; Z68.39 Body mass index [BMI] 39.0-39.9, adult; Z79.82 Long term (current) use of aspirin; Z79.899 Other long term (current) drug therapy; W17.89XA Other fall from one level to another, initial encounter
CPT/HCPCS: 23650; 24500; 73030; 96372; 96374; 99283; J2704; J3010; Q0162

== ENCOUNTER 2023-06-13 07:23 | Day surgery (SDC) | payer MEDICARE ==
[~2023-06-13 07:23] MED LIST: Lactated Ringers 1,000 ML IV SCH; Propofol 200 MG/20 ML SDV ONE; fentaNYL 50 MCG/ML SDV ONE
[2023-06-13] MEDS ORDERED: Lactated Ringers 1,000 ML IV SCH (08:30)
[2023-06-13] MEDS ORDERED: Propofol 200 MG/20 ML SDV ONE (10:01)
[2023-06-13 11:11] VITALS: BP 137/61; PULSE 64
== END 2023-06-13 11:36 | disposition home or self-care (01) ==
LOC: JP.SDS 07:23
PROVIDERS: ATTEND Student in an Organized Health Care Education/Training Program
DX: Z12.11 Encounter for screening for malignant neoplasm of colon (principal); D12.3 Benign neoplasm of transverse colon; K57.30 Diverticulosis of large intestine without perforation or abscess without bleeding; K21.9 Gastro-esophageal reflux disease without esophagitis; E78.00 Pure hypercholesterolemia, unspecified
CPT/HCPCS: 45380; J2704; J3010; J7120